=== PATIENT | male | born 1995 | race Caucasian/White ===

== ENCOUNTER 2019-03-13 02:22 | Emergency (ER) | payer OTHER ==
[2019-03-13 02:31] VITALS: BP 150/95; PULSE 102; TEMP 98.4; BMI 25.7
[2019-03-13] MEDS ORDERED: AZITHROMYCIN 250 MG TABLET ONE (02:37)
[2019-03-13] MEDS ORDERED: AZITHROMYCIN 500 MG TABLET PO ONE (02:37)
--- NOTE | 2019-03-13 02:37 | PDOC ---
History of Present Illness - General Chief Complaint: Respiratory Stated Complaint: COUGH SORE THROAT,INJURY TO LEFT WRIST Time Seen by Provider: 03/13/19 02:25 - History of Present Illness Initial Comments: This 23-year-old man, smoker (half pack/day) presents with 2-day history of cough productive of yellowish sputum along with sore throat (especially after coughing) and nasal congestion. Although he has complaints of some body aches, he reports no fever/chills. No history of asthma or wheezing. He has had some intermittent shortness of breath, especially during episodes of prolonged coughing. No history of pneumonia. No recent travel. 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 Also, unrelated to his current respiratory illness, he lifted heavy box yesterday during his work at [employer]. Since then, he has had pain with flexion and hyperextension of his left wrist. No history of swelling or bruising of the wrist or hand. Half pack per day smoker; no daily alcohol or recreational drug use No known allergies No daily medications Past History - Past Medical History Allergies/Adverse Reactions: Allergies Allergy/AdvReac Type Severity Reaction Status Date / Time No Known Allergies Allergy Verified 03/13/19 02:24 Home Medications: Ambulatory Orders Azithromycin 250 mg PO DAILY #4 tablet 03/13/19 Review of Systems - Review of Systems Able to Perform ROS?: Yes Comments:: 12 point review of systems is negative except for what is noted in the history of present illness *Physical Exam - Physical Exam GENERAL: Adult male, alert and oriented x3, no acute distress HEAD: Normal with no signs of trauma. EYES: PERRLA, EOMI, sclera anicteric, conjunctiva clear. ENT: Ears normal, nares patent, oropharynx mildly erythematous without exudates. Moist mucous membranes. NECK: Normal range of motion, supple without lymphadenopathy, JVD, or masses. LUNGS: Breath sounds equal, clear to auscultation bilaterally. No wheezes, and no crackles. HEART:Regular rate and rhythm, normal S1 and S2 without murmur, rub or gallop. ABDOMEN:.normal bowel sounds No guarding,tenderness or rebound.No masses No distention. EXTREMITIES: Left upper extremity-no edema/deformity/ecchymosis of wrist; moderate pain in wrist with flexion and hyperextension No snuffbox or other hand tenderness, deformity or ecchymosis NEUROLOGICAL: Cranial nerves II through XII grossly intact. Normal speech. No focal neurological deficits. MUSCULOSKELETAL: Back non-tender to palpation, no CVA tenderness SKIN: Warm, Dry, normal turgor, no rashes or lesions noted. Medical Decision Making - Medical Decision Making 23-year-old man, smoker presents with productive cough and intermittent shortness of breath for the last day. There is been no wheezing and no measured fever/chills. No history of asthma or pneumonia. Although he has some body aches, he has no other symptoms of note except for mild sore throat. Also, the patient has a history of lifting a heavy box at work yesterday with subsequent pain on flexion and hyperextension of the left wrist. Exam as noted. Clinical presentation most consistent with acute bronchitis and left wrist sprain/strain. Because patient is a smoker and has had intermittent shortness of breath, will be started on azithromycin ([id number]). First dose of azithromycin 500 mg given here in the emergency room with subsequent course of 250 mg daily for 4 days sent to his pharmacy. The patient has been advised not to work today and work documentation provided for the patient. He should rest and drink plenty of fluids (the patient has been drinking tea/lemon/sohail/honey mixture, which is helpful). He should follow-up with his general medical doctor, Dr. Russ Jules in the next few days. He should return to the emergency room if he has severe shortness of breath, wheezing, severe cough, high fever Discharge - Discharge Information Problems reviewed: Yes Clinical Impression/Diagnosis: Sprain and strain of left wrist Acute bronchitis Qualifiers: Bronchitis organism: other organism Qualified Code(s): J20.8 - Acute bronchitis due to other specified organisms Condition: Stable Disposition: HOME - Additional Discharge Information Prescriptions: Azithromycin 250 mg PO DAILY #4 tablet - Follow up/Referral Referrals: Russ Jules MD [Staff Physician] - - Patient Discharge Instructions Patient Printed Discharge Instructions: DI for Acute Bronchitis Additional Instructions: Rest; no work today Drink plenty of fluids as discussed Motrin/Tylenol as needed for body aches/headache/fever Azithromycin 250 mg a day for the next 4 days Marcus wrap to left wrist during the day for the next week Return to ER if you have severe cough, shortness of breath or persistent high fever Follow-up with within the next 5 days - Post Discharge Activity Work/Back to School Note: Back to Work
== END 2019-03-13 02:45 | disposition home or self-care (01) ==
LOC: FER 02:22
DX: J20.8 Acute bronchitis due to other specified organisms (principal); S63.502A Unspecified sprain of left wrist, initial encounter; X58.XXXA Exposure to other specified factors, initial encounter; Y93.89 Activity, other specified; Y92.89 Other specified places as the place of occurrence of the external cause; Y99.0 Civilian activity done for income or pay; F17.210 Nicotine dependence, cigarettes, uncomplicated
CPT/HCPCS: 99281-25